=== PATIENT | female | born 1960 ===

== ENCOUNTER 2018-06-20 11:47 | Emergency (ER) | payer SELFPAY ==
[2018-06-20 12:10] VITALS: BP 112/83
--- NOTE | 2018-06-20 13:10 | UC ---
Neck Pain HPI - HPI Summary HPI Summary: PATIENT HAS HAD RIGHT-SIDED POSTERIOR NECK PAIN FOR ABOUT 1 MONTH. 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 THERE WAS A LOT OF JERKING OF THE CAR AND PATIENT STATES HER HEAD WAS BEING FLUNG BACK AND FORTH. THE NEXT DAY SHE WAS CARTING A VERY HEAVY WHEEL TABLE MOUNTAIN BACK AND FORTH ACROSS HER PROPERTY AND THINKS SHE FURTHER RDO HER NECK. SINCE THEN HAS HAD PERSISTENT PAIN. SLIGHT OCCASIONAL NUMBNESS IN THE RIGHT THUMB. NO WEAKNESS. NO HISTORY OF NECK TRAUMA IN THE PAST. WAS SEEN AT 3 AND TREATED WITH FLEXERIL AND ADVISED TO TAKE OTC IBUPROFEN. SHE STATES NONE OF THIS IS HELPING. - History of Current Complaint Chief Complaint: UCGeneralIllness Stated Complaint: NECK PAIN Time Seen by Provider: 06/20/18 12:07 Hx Obtained From: Patient Mechanism Of Injury: No Known Trauma Timing: Constant Onset/Duration: Lasting Weeks, Still Present Severity: Moderate Pain Intensity: 6 Pain Scale Used: 0-10 Numeric Character: Sharp Aggravating Factors: Movement Alleviating Factors: Nothing Associated Signs & Symptoms: Positive: Paresthesia. Negative: Swelling, Redness , Bruising, Nuchal Rigity, Weakness - Allergies/Home Medications Allergies/Adverse Reactions: Allergies Allergy/AdvReac Type Severity Reaction Status Date / Time Penicillins Allergy Hives Verified 06/20/18 12:12 PMH/Surg Hx/FS Hx/Imm Hx Previously Healthy: Yes - Surgical History Surgical History: None Surgery Procedure, Year, and Place: denies - Family History Known Family History: Positive: Non-Contributory - Social History Alcohol Use: Occasionally Substance Use Type: None Smoking Status (MU): Light Every Day Tobacco Smoker Review Of Systems Constitutional: Positive: Negative Skin: Positive: Negative Respiratory: Positive: Negative Cardiovascular: Positive: Negative Gastrointestinal: Positive: Negative Musculoskeletal: Positive: Arthralgia, Decreased ROM, Myalgia All Other Systems Reviewed And Are Negative: Yes Physical Exam Triage Information Reviewed: Yes Appearance: Well-Appearing, No Pain Distress, Well-Nourished Vital Signs: Initial Vital Signs Temp 96.7 F 06/20/18 12:06 Pulse 90 06/20/18 12:06 Resp 17 06/20/18 12:06 BP 112/83 06/20/18 12:06 Pulse Ox 100 06/20/18 12:06 Vital Signs Reviewed: Yes Eyes: Positive: Conjunctiva Clear ENT: Positive: Hearing grossly normal Neck: Positive: Supple, No Lymphadenopathy, Tenderness @ - RIGHT SCM MUSCLE Respiratory: Positive: No respiratory distress, No accessory muscle use Cardiovascular: Positive: Pulses Normal Abdomen Description: Positive: Soft Musculoskeletal: Positive: No Edema, ROM Limited @ - SLIGHT LIMITATION ROM NECK IN ALL DIRECTIONS Neurological: Positive: Alert Psychological: Positive: Age Appropriate Behavior Skin: Negative: Rashes Diagnostics - Radiology CERVICAL SPINE XRAYS Radiology Interpretation Completed By: Radiologist Summary of Radiographic Findings: C-SPINE XRAY SHOWS Mild C5-C6 degenerative spondylosis. Neck Pain Course/Dx - Differential Dx/Diagnosis Provider Diagnosis: Cervical muscle strain Discharge - Sign-Out/Discharge Documenting (check all that apply): Patient Departure All imaging exams completed and their final reports reviewed: Yes - Discharge Plan Condition: Stable Disposition: HOME Prescriptions: Cyclobenzaprine TAB* [Flexeril TAB*] 10 mg PO BID PRN #30 tab PRN Reason: Pain Meloxicam [Mobic] 7.5 mg PO BID PRN #30 tab PRN Reason: Pain Patient Education Materials: Cervical Strain (ED), Neck Pain (ED) Referrals: No Primary Care Phys,NOPCP [Primary Care Provider] - Additional Instructions: XRAY TODAY SHOWS SOME DEGENERATIVE CHANGE IN YOUR C-SPINE. REST, HEAT, MASSAGE, MELOXICAM AND FLEXERIL NEEDED. REFERRAL FOR PHYSICAL THERAPY PROVIDED TODAY. BE SURE TO GO THROUGH SLOW RANGE OF MOTION AND STRETCHING EXERCISES DAILY YOU ARE ABLE TO PREVENT STIFFENING UP AND MAKING THE DISCOMFORT WORSE. GO TO THE ED IF YOU DEVELOP WORSENING PAIN, NUMBNESS, WEAKNESS, HEADACHE OR ANY OTHER CONCERNING SYMPTOMS. [facility] [address] [place] [address] [phone] CALL THE NUMBER BELOW FOR ASSISTANCE IN ESTABLISHING WITH A PCP An additional resource available to assist in finding the appropriate physician for your health care needs is the [facility] ([facility]). You may contact them by calling [phone]. - Billing Disposition and Condition Condition: STABLE Disposition: Home
== END 2018-06-20 13:39 | disposition home or self-care (01) ==
LOC: UCEAST 11:47
DX: S16.1XXA Strain of muscle, fascia and tendon at neck level, initial encounter (principal); F17.200 Nicotine dependence, unspecified, uncomplicated; W22.8XXA Striking against or struck by other objects, initial encounter; Y92.9 Unspecified place or not applicable
CPT/HCPCS: 72050; 99202; G0463